=== PATIENT | male | born 1960 | race Caucasian/White ===

== ENCOUNTER 2016-09-03 12:26 | Day surgery (SDC) | payer BC ==
[~2016-09-03 12:26] MED LIST: NO MEDS
[2016-10-09] MEDS ORDERED: ZOFRAN8 M1 PO (10:32)
[2016-10-09] MEDS ORDERED: COMPAZINE10 MG PO (10:32)
[2016-10-09] MEDS ORDERED: SENNA8.6 M2 PO (10:33)
[2016-10-09] MEDS ORDERED: HYDROCODON-ACET15 M1 PO (10:34)
[2016-10-13] MEDS ORDERED: ATIVAN0.5 M1 PO (11:41)
== END 2016-09-03 18:40 ==
LOC: SRG 12:26 → ORE 15:22 → PACU 16:25 → SHSC 16:50
PROC: 0CBP0ZX Excision of Tonsils, Open Approach, Diagnostic (ICD-10-PCS; principal; 2016-09-03)
PROC: 0CJS8ZZ Inspection of Larynx, Via Natural or Artificial Opening Endoscopic (ICD-10-PCS; 2016-09-03)
DX: C09.9 Malignant neoplasm of tonsil, unspecified (principal); C77.0 Secondary and unspecified malignant neoplasm of lymph nodes of head, face and neck